=== PATIENT | male | born 1985 | race Caucasian/White ===

== ENCOUNTER 2016-03-23 08:53 | Emergency (ER) | payer BC ==
--- NOTE | 2016-03-23 09:58 | UC ---
Throat Pain/Nasal Alejandro HPI - HPI Summary HPI Summary: sore throat x 7 days no fever, no chills, + cough, no runny nose - History of Current Complaint Chief Complaint: UCGeneralIllness Stated Complaint: SORE THROAT Time Seen by Provider: 03/23/16 09:51 Hx Obtained From: Patient Onset/Duration: Gradual Onset, Lasting Days - 7, Still Present Severity: Moderate Cough: Nonproductive Associated Signs & Symptoms: Negative: Drooling, Sinus Discomfort, Nasal Discharge, Fever - Allergies/Home Medications Allergies/Adverse Reactions: Allergies Allergy/AdvReac Type Severity Reaction Status Date / Time Cephalexin [From Keflex] Allergy Intermediate Rash Verified 03/23/16 09:22 Penicillins Allergy Intermediate Rash Verified 03/23/16 09:22 Prochlorperazine Allergy Intermediate Hives Verified 03/23/16 09:22 [From Compazine] Home Medications: Home Medications Lisinopril TAB* [Prinivil TAB*] 10 mg PO BEDTIME 03/23/16 [History Confirmed ] Novolog Pump DAILY 03/23/16 [History] PMH/Surg Hx/FS Hx/Imm Hx Endocrine History Of: Reports: Diabetes - Surgical History Surgical History: None - Family History Known Family History: Negative: Diabetes - Social History Alcohol Use: Rare Substance Use Type: None Smoking Status (MU): Never Smoked Tobacco - Immunization History Most Recent Influenza Vaccination: [id number] Review of Systems Constitutional: Negative Skin: Negative Eyes: Negative ENT: Sore Throat Respiratory: Cough Cardiovascular: Negative All Other Systems Reviewed And Are Negative: Yes Physical Exam Triage Information Reviewed: Yes Appearance: Well-Appearing, No Pain Distress, Well-Nourished Vital Signs: Initial Vital Signs Temp 98.3 F 03/23/16 09:18 Pulse 92 03/23/16 09:18 Resp 16 03/23/16 09:18 BP 123/74 03/23/16 09:18 Pulse Ox 98 03/23/16 09:18 Vital Signs Reviewed: Yes Eyes: Positive: Conjunctiva Clear ENT: Positive: Normal ENT inspection, Hearing grossly normal, Pharyngeal erythema, TMs normal. Negative: Nasal congestion, Nasal drainage Neck: Positive: Supple, Nontender, No Lymphadenopathy Respiratory: Positive: Chest non-tender, Lungs clear, Normal breath sounds Cardiovascular: Positive: RRR, No Murmur, Pulses Normal Abdominal Exam: Normal Skin Exam: Normal Throat Pain/Nasal Course/Dx - Differential Dx/Diagnosis Provider Diagnoses: strep pharyngitis Discharge - Discharge Plan Condition: Stable Disposition: HOME Prescriptions: Azithromycin TAB* [Zithromax TAB (Z-MECHE) 250 mg #6 tabs] 2 tab PO .TODAY, THEN 1 DAILY #1 meche Patient Education Materials: Strep Throat (ED) Forms: *Work Release Referrals: No Primary Care Phys,NOPCP [Primary Care Provider] - If Needed
== END 2016-03-23 10:22 | disposition home or self-care (01) ==
LOC: UCCORT 08:53
DX: J02.0 Streptococcal pharyngitis (principal); E11.9 Type 2 diabetes mellitus without complications; Z88.0 Allergy status to penicillin; Z88.1 Allergy status to other antibiotic agents; Z88.8 Allergy status to other drugs, medicaments and biological substances
CPT/HCPCS: 87651; 99202; G0463

== ENCOUNTER 2016-05-25 09:43 | Emergency (ER) | payer BC ==
--- NOTE | 2016-05-25 11:15 | RAD ---
INDICATION: Left elbow injury COMPARISON: None TECHNIQUE: AP, lateral, and oblique views were obtained. FINDINGS: There is a small linear ossific density adjacent to the olecranon likely represents a tiny avulsed fragment. No additional definitive acute bony findings are seen. The elbow articulates normally. There is a joint effusion with displacement of anterior posterior fat pads. IMPRESSION: SUSPECT SMALL AVULSION INJURY FROM THE OLECRANON. JOINT EFFUSION WITH FAT PAD DISPLACEMENT RAISES POSSIBILITY OF ADDITIONAL OCCULT FRACTURE
--- NOTE | 2016-05-25 11:16 | UC ---
Elbow Pain - HPI Summary HPI Summary: Tripped and fell at home last night landing directly onto tip of L elbow. Today unable to move arm. - History of Current Complaint Chief Complaint: UCUpperExtremity Stated Complaint: S/P FALL LEFT ELBOW PAIN Time Seen by Provider: 05/25/16 10:51 Hx Obtained From: Patient Onset/Duration: Hours, Traumatic Severity Initially: Moderate Severity Currently: Moderate Location Of Pain: Is Discrete @ Character: Dull, Aching, Stiffness Aggravating Factor(s): Movement Alleviating Factor(s): Rest Associated Signs And Symptoms: Positive: Swelling - Allergies/Home Medications Allergies/Adverse Reactions: Allergies Allergy/AdvReac Type Severity Reaction Status Date / Time Cephalexin [From Keflex] Allergy Intermediate Rash Verified 05/25/16 10:47 Penicillins Allergy Intermediate Rash Verified 05/25/16 10:47 Prochlorperazine Allergy Intermediate Hives Verified 05/25/16 10:47 [From Compazine] Home Medications: Home Medications Cholecalciferol [Vitamin D-3] 2,000 unit PO DAILY 05/25/16 [History Confirmed ] PMH/Surg Hx/FS Hx/Imm Hx Endocrine History Of: Reports: Diabetes - insulin - Surgical History Surgical History: Yes Surgery Procedure, Year, and Place: wisdom teeth - Family History Known Family History: Negative: Diabetes - Social History Lives: With Family Alcohol Use: Rare Substance Use Type: None Smoking Status (MU): Never Smoked Tobacco - Immunization History Most Recent Influenza Vaccination: [id number] Review of Systems Constitutional: Negative Skin: Negative Eyes: Negative ENT: Negative Respiratory: Negative Cardiovascular: Negative Gastrointestinal: Negative Genitourinary: Negative Motor: Negative Neurovascular: Negative Musculoskeletal: Arthralgia, Decreased ROM Neurological: Negative Psychological: Negative All Other Systems Reviewed And Are Negative: Yes Physical Exam Triage Information Reviewed: Yes Appearance: Well-Appearing, Pain Distress - holding L elbow in fixed position Vital Signs: Initial Vital Signs Temp 98.3 F 05/25/16 10:39 Pulse 83 05/25/16 10:39 Resp 18 05/25/16 10:39 BP 118/74 05/25/16 10:39 Vital Signs Reviewed: Yes Eye Exam: Normal Eyes: Positive: Conjunctiva Clear ENT Exam: Normal ENT: Positive: Normal ENT inspection, Hearing grossly normal, Pharynx normal, TMs normal Dental Exam: Normal Neck exam: Normal Neck: Positive: Supple, Nontender, No Lymphadenopathy Respiratory Exam: Normal Respiratory: Positive: Chest non-tender, Lungs clear, Normal breath sounds, No respiratory distress, No accessory muscle use Cardiovascular Exam: Normal Cardiovascular: Positive: RRR, No Murmur Musculoskeletal: Positive: ROM Limited @ - L elbow, Other: - tender L olecranon Neurological Exam: Normal Psychological Exam: Normal Skin Exam: Normal Elbow Pain Course/Dx - Differential Dx/Diagnosis Provider Diagnoses: L elbow avulsion fracture. occult fracture L elbow. Elevated blood pressure due to pain Discharge - Discharge Plan Condition: Stable Disposition: HOME Patient Education Materials: SUSPECTED FRACTURE (ED), Elbow Fracture in Adults (ED) Referrals: Isabel Cerna MD [Medical Doctor] - 2 Weeks Additional Instructions: Please follow up with the orthopedist in 1-2 weeks for follow-up x-rays. If you prefer to see an orthopedist in [place], you can call [phone] to arrange for this.
== END 2016-05-25 11:41 | disposition home or self-care (01) ==
LOC: UCCORT 09:43
DX: S42.402A Unspecified fracture of lower end of left humerus, initial encounter for closed fracture (principal); W01.0XXA Fall on same level from slipping, tripping and stumbling without subsequent striking against object, initial encounter; Y93.9 Activity, unspecified; Y92.009 Unspecified place in unspecified non-institutional (private) residence as the place of occurrence of the external cause; R03.0 Elevated blood-pressure reading, without diagnosis of hypertension; E11.9 Type 2 diabetes mellitus without complications; Z79.4 Long term (current) use of insulin; Z88.1 Allergy status to other antibiotic agents; Z88.0 Allergy status to penicillin
CPT/HCPCS: 99213; G0463